=== PATIENT | male | born 1950 | race Caucasian/White ===

== ENCOUNTER 2016-07-11 16:08 | Observation (INO) | payer OTHER, MEDICARE ==
[~2016-07-11] VITALS: Ht 177.8 cm; Wt 123.4 kg
[2016-07-11] VITALS (8 sets, daily range): BP systolic 110–135; BP diastolic 62–89; PULSE 49–103; RESP 16–24; O2SAT 91–98
[~2016-07-11 16:08] MED LIST: AZEL23SP NS; FLUT16SP NS; LISI-567 PO; SILD100T PO; TR5C15 TOP; [UNRECOGNIZED DRUG - CODE] PO
--- NOTE | 2016-07-11 16:28 | ED.REPORT ---
HPI-General Illness Date of Service Jul 11, 2016 ED Provider: Catalino Mendoza MD Pt is a 65 y/o male w/ a hx of GERD, HTN, COPD with no home O2, presenting to the ED c/o sudden-onset epigastric abdominal pain with radiation the back onset 12:00 today. He describes his pain as a pressure and similar to gas. He c/o associated dyspepsia, near-syncope, diaphoresis, productive cough, SOB. Pt denies SOB, CP, fever, chills. His pain does not radiate to the chest or lower abdomen. Pain is not exacerbated with exertion. He had similar pain 2 years ago and was diagnosed with gastritis. He has no history of CAD or [place], aortic aneurysm or dissection, peptic ulcers. He denies recent history of surgeries or prolonged immobilization, hx of DVT or PE, any change in . He states his right leg intermittently becomes edematous but this has been happening for a long time. Nursing Notes Stated Complaint: UPPER ABD PRESSURE Chief Complaint: Male Abdominal Pain Nursing Notes Reviewed: Yes Allergies: Coded Allergies: No Known Allergies (Verified Allergy, Severe, 11/20/14) Scheduled Azelastine/Fluticasone (Dymista Nasal [place]) 23 Gm [place].pump 2 SPRAY NS DAILY Fluticasone Propionate (Fluticasone Propionate Nasal) 16 Gm [place].susp 2 SPRAY NS DAILY Lisinopril (Lisinopril) 20 Mg Tablet 20 MG PO DAILY Sildenafil Citrate (Viagra) 100 Mg Tablet 25-100 MG PO UD Scheduled PRN Ibuprofen (Ibuprofen Ib) 200 Mg Tablet 600 MG PO DAILY PRN PRN For Pain Triamcinolone Acet (Triamcinolone Acetonide Cream) 4 Applic/Gm Cr 1 APPLIC TOP BID PRN PRN psoriasis General Time Seen by MD: 16:26 Chief Complaint Abdominal pain Hx Obtained From: Patient, Spouse Arrived By: Walk-in Sudden in Onset?: Yes Onset Occurred: 1 - 4 hours ago Symptom Duration: Since onset Location: : Abdomen Quality: Painful Radiation: : Back Severity: Current: Moderate Severity: Maximum: Moderate Similar Sx Previous: Yes Past Medical History Past Medical History Sleep apnea GERD HTN COPD - no home O2 Past Surgical History Reports: Appendectomy, Tonsillectomy Family History Aneurysm Smoking History Former Smoker Social History Alcohol Use: "Social" Review of Systems Full Review of Systems Constitutional: Denies: Chills, Fever Respiratory: Reports: Prod cough, green, Prod cough, yellow, Shortness of breath Cardiovascular: Denies: Chest pain, Dyspnea on exertion GI: Reports: Abdominal pain, Denies: Diarrhea, Nausea, Vomiting Skin: Reports Diaphoresis, Denies Rash Neurologic: Reports: Dizziness, Lightheaded Complete sys rev & neg: except as marked. Physical Exam Vital Signs Vital Signs Date Time Temp Pulse Resp B/P Pulse Ox O2 Delivery O2 Flow Rate FiO2 07/11/16 19:09 91 22 134/78 93 Room Air 07/11/16 18:25 84 22 135/78 92 Nasal Cannula 2 07/11/16 17:32 52 18 97 Nasal Cannula 2 07/11/16 17:30 51 16 124/74 98 Nasal Cannula 4 07/11/16 16:27 49 22 116/72 91 Nasal Cannula 4 07/11/16 16:14 35.8 50 110/62 91 Room Air Initial VS: Reviewed, Vital signs abnormal Head / Eyes: Atraumatic, Normocephalic, PERRL Neck: Supple, Full range of motion Skin: Warm, Dry, No cyanosis Neurologic: Alert, Oriented, Nonfocal Psychiatric: Mood/affect normal, Behavior normal, Normal thought content General/Constitutional: Awake, Alert, Cooperative, Not toxic appearing Distress / Hydration: Positive: Distress mild Appearance / Presentation: Positive: Uncomfortable ENT: Atraumatic, Airway patent Mouth: Positive: Mucous membranes dry Respiratory / Chest: Atraumatic, No respiratory distress, No retractions, No stridor, No chest tenderness, No chest wall deformity, No crepitus Coarse breath sounds throughout Prolonged expiratory phase Scattered wheezing throughout Satting mid 90s on 4L nasal cannula Cardiovascular: Regular rhythm, Heart sounds NL, No gallop, No murmurs, No rubs , Cap refill not delayed, Peripheral circulation NL Heart Rate / Rhythm: Positive: Bradycardia (mild) Trace pitting edema Abdomen: Atraumatic, Soft, No guarding, No rebound, No distention, No palpable mass Tenderness/Guarding/Rebound: Positive: Tender epigastric (mod) Lower Extremity / Pelvis / MS: Atraumatic, Inspection NL, Full range of motion , Non-tender, No erythema, No deformity, Neurologic intact, Vascular intact, No compartment syndrome Right leg slightly more edematous than the left Interpretation & Diagnostics Lab Results Interpretation Result Diagram: 4/2/17 1632 07/11/16 1712 Test 07/11/16 16:32 07/11/16 17:12 White Blood Count 10.9th/mm3 (3.8-10.1) Red Blood Count 4.91mil/mm3 (4.40-5.80) Hemoglobin 15.1g/dL (13.8-17.2) Hematocrit 46.5% (41.0-50.0) Mean Corpuscular Volume 94.7fL (81-100) Mean Corpuscular Hemoglobin 30.8pg (27.0-35.0) Mean Corpuscular Hemoglobin Concent 32.5% (32.0-37.0) Red Cell Distribution Width 13.3% (12.3-15.4) Platelet Count 205bil/L (150-400) Neutrophils (%) (Auto) 64.5% (40-74) Lymphocytes (%) (Auto) 21.0% (14-46) Monocytes (%) (Auto) 8.6% (4-12) Eosinophils (%) (Auto) 5.2% (0-5) Basophils (%) (Auto) 0.3% (0-3) Sodium Level 140mEq/L (134-144) Potassium Level 4.4mEq/L (3.5-5.2) Chloride Level 101mEq/L (97-108) Carbon Dioxide Level 25mmol/L (18-29) Blood Urea Nitrogen 24mg/dL (8-27) Creatinine 1.01mg/dL (0.76-1.27) Estimat Glomerular Filtration Rate 78mL/min (>59) Glucose Level 136mg/dL (60-99) Calcium Level 9.8mg/dL (8.5-10.1) Magnesium Level 1.8mg/dL (1.6-2.6) Total Bilirubin 0.3mg/dL (0.0-1.2) Aspartate Amino Transf (AST/SGOT) 31U/L (0-50) Alanine Aminotransferase (ALT/SGPT) 31U/L (0-44) Alkaline Phosphatase 61U/L (25-160) Troponin T < 0.010ug/L (0.0-0.011) Total Protein 7.7g/dL (6.4-8.4) Albumin 4.0g/dL (3.4-5.0) Hold Mendez Top Tube Received (Received) ECG Interpretation ECG Interpretation: Sinus bradycardia rate [address] or T changes Compared to prior 03/17/14 now more bradycardic and 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 Dictated by: Lori Nunn M.D. on 07/11/2016 at 16:58 Approved by: Lori Nunn M.D. on 07/11/2016 at 17:01 View: Portable, 1 view Interpretation / Wet Read by: Interpret - Radiologist CT Chest Interpretation IMPRESSION: 1. No pulmonary embolus. 2. Moderate bilateral atypical pneumonia. 3. No change in pulmonary nodules. 4. Increased mediastinal and hilar adenopathy, possibly reactive. Followup chest CT in 3 months is recommended to exclude progressive neoplasm. Dictated by: Lori Nunn M.D. on 07/11/2016 at 18:28 Approved by: Lori Nunn M.D. on 07/11/2016 at 18:31 Study type: CT pulm angiogram Interpretation / Wet Read by: Interpret - Radiologist Re-Eval/Medical Decision Med Decision/Clinical Course Pt is a 65 y/o male w/ a hx of GERD, HTN, COPD with no home O2, presenting to the ED c/o sudden-onset epigastric abdominal pain with radiation the back onset 12:00 today, he reports a history of similar pain and thinks it is related to indigestion, of note he also reports significant dyspnea and wheezing on exertion. Upon arrival he has significant work of breathing with oxygen saturation into the mid 70s on room air, he also appears uncomfortable with epigastric discomfort. He is bradycardic in the 50s and EKG is obtained above demonstrates sinus bradycardia without significant changes from prior EKGs. He has no significant acute ischemic changes. His blood pressure is stable. He has tenderness without guarding or rigidity in the epigastrium and on examination there is no evidence of DVT. He has significant increased work of breathing with prolonged expiratory phase and poor air movement and wheezing. The patient appears to have multiple issues today. While his chest and epigastric pain in the setting of his multiple risk factors and comorbidities is concerning for acute coronary syndrome his description is much more suggestive of gastritis, GERD/peptic ulcer disease. Therefore I treated him with a GI cocktail and he reported near immediate resolution of his epigastric and chest pain. Initial screening EKG and troponin were reassuring against acute coronary syndrome. My larger concern is related to his significant hypoxia in the setting of chest pain that is somewhat pleuritic in nature. While my suspicion is that his underlying hypoxia and work of breathing is related to COPD exacerbation I have some concern for acute pulmonary embolism as well. I ordered a CT angiogram and treated him with 125 of IV methylprednisolone as well as to [id number] DuoNebs. He reported significant improvement in his work of breathing though he continued to require 4 L of oxygen by nasal cannula to maintain saturation in the mid 90s at rest. When ambulated without supplemental oxygen sat again dropped into the 70s and 80s. CXR: Obtained, reviewed and interpreted by myself shows no evidence of infiltrates, effusions or pneumothorax. Cardiac and mediastinal silhouette normal. No bony or soft tissue abnormalities. CT angiogram demonstrated no acute pulmonary embolism though there was bilateral ground glass appearance suggestive of atypical pneumonia. Therefore I treated the patient with 500 of oral azithromycin as he is not toxic in appearance or febrile. Labs notable as below: CBC: Borderline leukocytosis of 10.9, stable HCT CMP: Unremarkable Troponin: negative Patient was discussed with admitting hospitalist I feel that he warrants admission for further workup of his epigastric/chest pain and ACS rule out. Additionally he will hire ongoing treatment with his COPD exacerbation/atypical pneumonia. Antibiotics were discussed with admitting hospitalist and they will consider broadening his antibiotics though at this time they are comfortable proceeding with just oral azithromycin. Patient transferred in stable condition. Time of Eval: 19:21 Re-Evaluation/Progress Note: O2 sat 91% on RA at rest. Plan to road test. Time of Eval: 19:25 Re-Evaluation/Progress Note: Pt rechecked. Failed road test, desatting into 70s. Pain improved after GI cocktail. Informed pt of need for admission. Pt understands and agrees with plan for admission. All questions addressed. Consultation : Consulted With: Hospitalist Call Returned at: 19:34 Supervisor Area: Will see patient, Agrees with eval, Agrees with plan, Accepts admit Counseled Regarding: Diagnosis, Lab results, Need for admission Discharge & Departure Primary Impression: Atypical pneumonia Additional Impressions: Hypoxia COPD exacerbation GERD (gastroesophageal reflux disease) Esophagitis presence: esophagitis presence not specified Qualified Code: K21.9 - Gastro-esophageal reflux disease without esophagitis Gastritis Sinus bradycardia Disposition: ADMITTED TO HOSPITAL Discharge Condition All VS Reviewed: Yes Condition: Stable Referrals: Bright Carlos MD (PCP) Crit Care Except Billable Proc Time Spent: 135-164 minutes Services Performed: Patient management by me, Time spent at bedside, Reviewing test results, Reviewing imaging, Discussing patient care, Documentation in record, Time with fam/surrogate Scribe Attestation Portions of this note were transcribed by Arden Blair. I, Dr. Mendoza personally performed the history, physical exam and medical decision-making; I reviewed and confirmed the accuracy of the information in the transcribed note. Signed by Maribell Wing, 07/11/16 - [id number] copies to: Bright Carlos MD, Beck O MD Jul 11, 2016 16:28 ARDEN BLAIR Jul 11, 2016 16:51
[2016-07-11 16:47] LABS: BASOPHILS % (AUTO) 0.3 % (0-3); EOSINOPHILS % (AUTO) 5.2 % (0-5); MONOCYTES % (AUTO) 8.6 % (4-12); Mean Corpuscular Hemoglobin 30.8 pg (27.0-35.0); Mean Corpuscular Volume 94.7 fL (81-100); NEUTROPHILS % (AUTO) 64.5 % (40-74); Platelet Count 205 bil/L (150-400)
[2016-07-11] MEDS ORDERED: HYDROmorphone 0.5 mg/0.5 mL iSecure Syringe IVPUSH PRN (17:00)
[2016-07-11] MEDS ORDERED: MethylprednisoLONE Sodium Succinate 62.5 mg/mL 2 mL Inj IVPUSH ONE (17:00)
[2016-07-11] MEDS ORDERED: 0.9% Sodium Chloride 1,000 ML IV ONE (17:00)
[2016-07-11] MEDS ORDERED: Ondansetron 2 mg/mL 2 mL Inj IVPUSH ONE (17:00)
[2016-07-11] MEDS ORDERED: Albuterol-Ipratropium 3 mL Inhalation Solution NEB ONE (17:00)
[2016-07-11] MEDS ORDERED: Albuterol-Ipratropium 3 mL Inhalation Solution NEB SCH (17:00)
[2016-07-11] MEDS ORDERED: LidocaineVisc 2%:Antacid 1:1 10 mL Syringe PO ONE (17:00)
--- NOTE | 2016-07-11 17:02 | DRSVH ---
PROCEDURE: X-RAY CHEST ONE VIEW, PORTABLE ([id number]) INDICATIONS: epigastric pain TECHNIQUE: One view of the chest was acquired. COMPARISON: [facility], CR, XR CHEST 2VW, 06/07/2016, 15:36. FINDINGS: Surgical changes and devices: None. Lungs and pleura: No pleural effusions or pneumothorax. No change in moderate chronic interstitial p ulmonary opacity. Right hemidiaphragm is elevated, as before. Lungs are otherwise clear. Mediastinum: Mediastinal contours appear normal. Heart size is normal. Bones and chest wall: No suspicious bony lesions. Overlying soft tissues appear unremarkable. IMPRESSION: No acute process. Dictated by: Lori Nunn M.D. on 07/11/2016 at 16:58 Approved by: Lori Nunn M.D. on 07/11/2016 at 17:01
[2016-07-11 17:51] LABS: Magnesium 1.8 mg/dL (1.6-2.6); TROPONIN T < 0.010 ug/L (0.0-0.011)
--- NOTE | 2016-07-11 18:33 | DRSVH ---
PROCEDURE: CT ANGIO CHEST PULMONARY EMBOLISM ([id number]) INDICATIONS: sob, hypoxia, CP, ELW swelling TECHNIQUE: After the administration of intravenous contrast, 2 mm thick sections acquired from the pulmonary api isa to the posterior costophrenic angles. 3-dimensional maximum intensity projection (MIP) coronal a nd sagittal reformats were then acquired through the thorax. For radiation dose reduction, the follo wing was used: automated exposure control, adjustment of mA and/or kV according to patient size. COMPARISON: [facility], CT, CHEST WITH CONTRAST, 12/05/2014, 15:19. FINDINGS: Image quality: Excellent. Pulmonary arteries: Pulmonary arteries are normal in size, and demonstrate no intraluminal filling d efects to suggest central pulmonary embolism. Lungs and pleura: Lung volumes are low. There is moderate bilateral upper and lower lobe airspace [place]. Multiple bilateral pulmonary nodules are present, as before, largest of which is in the right a nterior lung base measuring 11 mm, which is not significantly changed. No pleural effusions or pneumo thorax. Central and peripheral airways are patent. Mediastinum: Heart size is normal, without pericardial effusion. Multiple sites of mediastinal and h ilar adenopathy are present, which have increased. 17 mm subcarinal adenopathy is increased. Thoracic aorta is normal in caliber and enhancement. Esophagus is normal in caliber, without hiatal hernia. Bones and chest wall: No suspicious bony lesions. Ribs and thoracic spine appear intact throughout. Thyroid gland is within normal limits. No axillary or supraclavicular adenopathy. Abdomen: Visualized upper abdominal solid organs appear normal in the early arterial phase of enhanc ement. IMPRESSION: 1. No pulmonary embolus. 2. Moderate bilateral atypical pneumonia. 3. No change in pulmonary nodules. 4. Increased mediastinal and hilar adenopathy, possibly reactive. Followup chest CT in 3 months is recommended to exclude progressive neoplasm. Dictated by: Lori Nunn M.D. on 07/11/2016 at 18:28 Approved by: Lori Nunn M.D. on 07/11/2016 at 18:31
[2016-07-11] MEDS ORDERED: Albuterol 2.5 mg/3 mL Inhalation Solution NEB PRN (19:40)
--- NOTE | 2016-07-11 19:53 | PCM.HPMED ---
Subjective Date of Service Jul 11, 2016 Primary Provider: Admitting Physician: Rohini Sawant DO Primary Care Physician: Bright Carlos MD Attending Physician: Rohini Sawant DO Admit Status: From the Emergency Department Chief Complaint: Dyspnea, shortness of breath, chest pain, epigastric pain, History of Present Illness: This is a pleasant 65 y/o M with hx of GERD, HTN, COPD but without use of home O2 prior history of COPD exacerbation, who presented to [facility] ED with sudden- onset constant 910 sharp epigastric abdominal pain with radiation the back that is exacerbated with exertion and lasted for several hours, onset noon today. Pain is described as pressure and similar to abdominal gas that he had experienced in the past. He had similar pain 2 years ago and was diagnosed at that time with gastritis. Assoiciated symptoms include dyspepsia, nausea, diaphoresis, cough productive green sputum 1 week, and SOB. His pain does not radiate to the chest or lower abdomen. He however denies CP, fever, chills, recent surgery, imobilization, hx of PE or DVT, abdominal pain other than epigastric, recent sick contacts, travel. He has no history of CAD or [place], aortic aneurysm or dissection, peptic ulcers. Of note his right leg does intermittently become edematous but this is not new. Patient was seen in the urgent care 3 times since March for productive cough cough, and received by mouth antibiotics. Last visit to urgent care was mid-May. Patient states his cough keeps recurring. In the ED patient was given DuoNeb therapy, 1 L normal saline bolus, IV Zofran, IV methylprednisolone at 125 mg once, Z-Teo, and GI cocktail for epigastric pain. Neuro test patient was de-satting the 70s, and was admitted to the hospital for acute exacerbation of COPD, hypoxia, and bilateral pneumonia. Patient denies any current epigastric pain since admission. Vital signs: In the ED Temperature 35.8, pulse 50, blood pressure 110/62, O2 sat 91% on room air. Repeat vitals: Pulse 91, respiratory rate 22, blood pressure 134/78, 93% on room air. In ED patient was placed on 4 L oxygen nasal cannula and then reduce to 2 L and is now on room air with oxygen saturation 93%. Patient was given 1 L of IV fluids. Hemogram shows: W BCs 10.9, percent neutrophils 64.5, eos 5.2, otherwise normal hemogram Chemistry panel: Glucose elevated at 136, troponin less than 0.010, creatinine 1.01, otherwise normal hemogram CXR showed: was read as no acute process. Compared to 05/2016 CT and she will showed: No pulmonary embolus. Moderate bilateral atypical pneumonia. No change in pulmonary nodules. Increased mediastinal hilar adenopathy, possibly reactive. Review of Systems: A comprehensive review of systems was conducted and was negative except as mentioned in history of present illness. Allergies Coded Allergies: No Known Allergies (Verified Allergy, Severe, 11/20/14) Home Medications Azelastine/Fluticasone (Dymista Nasal [place]) 23 Gm [place].pump 2 SPRAY NS DAILY Fluticasone Propionate (Fluticasone Propionate Nasal) 16 Gm [place]way.susp 2 SPRAY NS DAILY Lisinopril (Lisinopril) 20 Mg Tablet 20 MG PO DAILY Sildenafil Citrate (Viagra) 100 Mg Tablet 25-100 MG PO UD PRN Ibuprofen (Ibuprofen Ib) 200 Mg Tablet 600 MG PO DAILY PRN PRN For Pain Triamcinolone Acet (Triamcinolone Acetonide Cream) 4 Applic/Gm Cr 1 APPLIC TOP BID PRN PRN psoriasis Keri when necessary for hayfever PMH Sleep apnea GERD HTN COPD - no home O2 Psoriasis Surgical History Appendectomy, Tonsillectomy, lung biopsies Family History Aneurysm Social History Hx Alcohol Use: Yes (rarely) Hx Substance Use: No Hx Tobacco Use: No Smoking Status: Former Smoker Exam Vital Signs Vital Sign - Last Date Time Temp Pulse Resp B/P Pulse Ox O2 Delivery O2 Flow Rate FiO2 07/11/16 19:09 91 22 134/78 93 Room Air 07/11/16 18:25 2 07/11/16 16:14 35.8 Exam General: Oriented alert 3, resting in bed, no acute distress, speaking in full sentences. HEENT: NC/AT, eyes, pupils equally round, EOMI, neck, soft supple, no adenopathy , no JVD, no masses, no thyromegaly, throat mucous membranes pink and moist, no erythema, no exudates Lungs: Left lower lung field crackles, reduced respiratory sounds in the right lung base, no wheezes, poor air movement. Heart: Bradycardia, rhythm regular, no murmur, S1-S2 present, no rub, no click, Abdomen: Soft, nontender, but protuberant, bowel sounds active, no rebound, no guarding, no abdominal pain, no epigastric pain on exam Genitourinary: No CVA tenderness, no suprapubic tenderness Extremities: Muscle strength, 5 out of 5 upper/lower extremity and symmetric laterally,pulses equal and symmetric upper/lower extremity including radial and dorsalis pedis, no edema Neurologic: Grossly intact, PT is speaking in full sentences, no focal neurological signs Skin: Warm dry intact MSK: no erythema or edema of joints, full range of motion Lymphatic: no cervical or supraclavicular lymphadenopathy Psychiatric: Mood is pleasant Lab and Diagnostics Result Diagram: 07/11/16 1632 07/11/16 1712 X-Rays, CTs and MRIs Date of Service: 07/11/16 1619 PROCEDURE: X-RAY CHEST ONE VIEW, PORTABLE INDICATIONS: epigastric pain TECHNIQUE: One view of the chest was acquired. COMPARISON: [facility], CR, XR CHEST 2VW, 06/07/2016, 15:36. FINDINGS: Surgical changes and devices: None. Lungs and pleura: No pleural effusions or pneumothorax. No change in moderate chronic interstitial pulmonary opacity. Right hemidiaphragm is elevated, as before. Lungs are otherwise clear. Mediastinum: Mediastinal contours appear normal. Heart size is normal. Bones and chest wall: No suspicious bony lesions. Overlying soft tissues appear unremarkable. IMPRESSION: No acute process. Dictated by: Lori Nunn M.D. on 07/11/2016 at 16:58 Approved by: Lori Nunn M.D. on 07/11/2016 at 17:01 Date of Service: 07/11/16 1659 PROCEDURE: CT ANGIO CHEST PULMONARY EMBOLISM ([id number]) INDICATIONS: sob, hypoxia, CP, ELW swelling TECHNIQUE: After the administration of intravenous contrast, 2 mm thick sections acquired from the pulmonary apices to the posterior costophrenic angles. 3-dimensional maximum intensity projection (MIP) coronal and sagittal reformats were then acquired through the thorax. For radiation dose reduction, the following was used: automated exposure control, adjustment of mA and/or kV according to patient size. COMPARISON: [facility], CT, CHEST WITH CONTRAST, 12/05/2014, 15:19. FINDINGS: Image quality: Excellent. Pulmonary arteries: Pulmonary arteries are normal in size, and demonstrate no intraluminal filling defects to suggest central pulmonary embolism. Lungs and pleura: Lung volumes are low. There is moderate bilateral upper and lower lobe airspace opacity. Multiple bilateral pulmonary nodules are present, as before, largest of which is in the right anterior lung base measuring 11 mm, which is not significantly changed. No pleural effusions or pneumothorax. Central and peripheral airways are patent. Mediastinum: Heart size is normal, without pericardial effusion. Multiple sites of mediastinal and hilar adenopathy are present, which have increased. 17 mm subcarinal adenopathy is increased. Thoracic aorta is normal in caliber and enhancement. Esophagus is normal in caliber, without hiatal hernia. Bones and chest wall: No suspicious bony lesions. Ribs and thoracic spine appear intact throughout. Thyroid gland is within normal limits. No axillary or supraclavicular adenopathy. Abdomen: Visualized upper abdominal solid organs appear normal in the early arterial phase of enhancement. IMPRESSION: 1. No pulmonary embolus. 2. Moderate bilateral atypical pneumonia. 3. No change in pulmonary nodules. 4. Increased mediastinal and hilar adenopathy, possibly reactive. Followup chest CT in 3 months is recommended to exclude progressive neoplasm. Dictated by: Lori Nunn M.D. on 07/11/2016 at 18:28 Approved by: Lori Nunn M.D. on 07/11/2016 at 18:31 Assessment & Plan This is a pleasant 65 y/o M with hx of GERD, HTN, COPD but without use of home O2 prior history of COPD exacerbation, who presented to [facility] ED with sudden- onset constant 910 sharp epigastric abdominal pain with radiation the back that is exacerbated with exertion and lasted for several hours, onset noon today with new hypoxia. # Hypoxic repiratory failure, present on admission - Patient desats in the 70s while ambulating, requiring 2-4L nasal canula with sats in the low 90s, does not require home oxygen - Likely multifactorial, secondary to COPD, and community-acquired pneumonia # COPD exacerbation, present on admission, active - Desaturations into the 70s while ambulating. - Patient's baseline oxygen saturation at home is in the high 80s ,and is not on home oxygen. - Patient states that he felt improvement on DuoNeb therapy in the ED. - Patient denies any history of prior COPD exacerbation. - Patient currently on oxygen at 3.5 L. - Given Solu-medrol 125 mg x 1. - Start 40 mg prednisone daily x 5 days. - Starting antibiotics Levaquin as above - Continue duo nebs 4 times a day while awake and albuterol nebs every 2 hours for shortness of breath. # Acute bilateral pneumonia, likely CAP, present on admission, active Patient complaining of 1 week of cough, productive green sputum. States that he has recurring cough and sputum production since mid March 2016 with 3 urgent care visits resulting in antibiotic prescription. He states each time his cough clears, but then returns. - Patient received 1 dose of azithromycin by mouth 500 mg in the ED. - As seen on CT angiogram: No pulmonary embolus. Moderate bilateral atypical pneumonia. No change in pulmonary nodules. Increased mediastinal and hilar adenopathy, possibly reactive. - CXR showed no acute process, reviewed - Sputum ordered and pending - Procalcitonin ordered and pending - This is likely CAP and will start Empiric ABx IV Levoquin - Acetominophen for fever control PRN - Legionella, and strep pneumo urine antigen - Continuous cardiopulmonary monitoring # Acute onset epigastric pain, ACS rule out, present on admission, active - Patients main complaint was epigastric pain that resolved on GI cocktail. - Patient plana acute epigastric pain described as a sensation of gas with associated diaphoresis. Patient had a very similar event 2 years ago when he was diagnosed with gastritis. Patient denied chest pain. - Symptoms resolved rather quickly with GI cocktail in the emergency department. Patient currently in no epigastric pain resting comfortably in bed and asking for food. - Troponin 0.010 in ED, - We will repeat troponin - Continuous cardiac monitoring. # Sinus bradycardia, present on admission, active - Seen on EKG - Patient is in no acute distress, denies chest pain. - Vital signs are stable with most recent pulse 100, and bradycardia currently resolved - Patient to be placed on continuous cardiac monitoring while in house # Right bundle branch block - As seen on EKG - Continuous cardiac monitoring as above #Hyperglycemia, present on admission - Hemoglobin A1c ordered and pending - Continue to monitor Disposition: Admitted to in patient service with expected length of stay greater than 2 days, secondary to severity of presenting symptoms, treatment plan, complexity of clinical work up, and risk of adverse events. CODE STATUS: DNR/DNI PCP: Bright Carlos DVT/PE prophylaxis: heparin Q8H Contact: Elyse Attending Statement The patient was seen and examined together with house staff on 07/11/2016 and I have added additional information to the note above. James Lawson DO Jul 11, 2016 19:52 Rohini Sawant DO Jul 12, 2016 03:02
[2016-07-11] MEDS: Albuterol-Ipratropium 3 mL Inhalation Solution NEB SCH (20:30)
[2016-07-11] MEDS ORDERED: Alum-Mag Hydrox-Simeth 30 mL Suspension PO PRN (21:30)
[2016-07-11] MEDS ORDERED: Polyethylene Glycol (PEG) 17 Gm Powder PO PRN (21:30)
[2016-07-11 22:15] LABS: Magnesium 1.8 mg/dL (1.6-2.6)
[2016-07-12] VITALS (8 sets, daily range): BP systolic 95–125; BP diastolic 61–87; PULSE 100–114; RESP 18–22; O2SAT 89–97
[2016-07-12] MEDS: Heparin 5,000 Unit/mL Inj SUBQ SCH ×2 (00:16→08:45)
[2016-07-12] MEDS: Albuterol-Ipratropium 3 mL Inhalation Solution NEB SCH ×4 (00:30→12:30)
[2016-07-12 03:45] LABS: BASOPHILS % (AUTO) 0.1 % (0-3); EOSINOPHILS % (AUTO) 0 % (0-5); MONOCYTES % (AUTO) 1.7 % (4-12); Mean Corpuscular Hemoglobin 30.7 pg (27.0-35.0); Mean Corpuscular Volume 94.2 fL (81-100); NEUTROPHILS % (AUTO) 89.4 % (40-74); Platelet Count 222 bil/L (150-400)
[2016-07-12] MEDS ORDERED: levoFLOXacin Inj 750 MG in IV Premix 1 EACH IV SCH (08:30)
[2016-07-12] MEDS ORDERED: predniSONE 20 mg Tablet PO SCH (08:30)
[2016-07-12] MEDS ORDERED: NAPR220C11 PO ×2 (08:45→08:49)
--- NOTE | 2016-07-12 11:41 | PCM.DC.MED ---
Discharge Summary Date of Service Jul 12, 2016 Dates of Hospitalization Date of Hospital Admission Jul 11, 2016 at 19:40 Date of Discharge: Jul 12, 2016 Providers: Admitting Physician: Rohini Sawant DO Primary Care Physician: Bright Carlos MD Attending Physician: Rohini Sawant DO Diagnosis at Time of Discharge Diagnosis at Time of Discharge # Hypoxic respiratory failure # COPD exacerbation, present on admission # Acute onset epigastric pain, ACS rule out # Sinus bradycardia # Right bundle branch block #Hyperglycemia Procedures XRay, CTs & MRIs . X-RAY CHEST ONE VIEW, PORTABLE IMPRESSION: No acute process. Dictated by: Lori Nunn M.D. on 07/11/2016 at 16:58 CT ANGIO CHEST PULMONARY EMBOLISM IMPRESSION: 1. No pulmonary embolus. 2. Moderate bilateral atypical pneumonia. 3. No change in pulmonary nodules. 4. Increased mediastinal and hilar adenopathy, possibly reactive. Followup chest CT in 3 months is recommended to exclude progressive neoplasm. Dictated by: Lori Nunn M.D. on 07/11/2016 at 18:28 ECG 12 Lead ECG Interpretation: Sinus bradycardia rate [address] or T changes Compared to prior 03/17/14 now more bradycardic and his incomplete RBBB has progressed to a full RBBB Time: 16:54 Interpreted by: ED physician Normal ECG Interpretation: No acute ischemic changes Brief History Per H&P from Dr. Renny DUTTA 07/11/2016 "This is a pleasant 65 y/o M with hx of GERD, HTN, COPD but without use of home O2 prior history of COPD exacerbation, who presented to [facility] ED with sudden- onset constant 910 sharp epigastric abdominal pain with radiation the back that is exacerbated with exertion and lasted for several hours, onset noon today. Pain is described as pressure and similar to abdominal gas that he had experienced in the past. He had similar pain 2 years ago and was diagnosed at that time with gastritis. Assoiciated symptoms include dyspepsia, nausea, diaphoresis, cough productive green sputum 1 week, and SOB. His pain does not radiate to the chest or lower abdomen. He however denies CP, fever, chills, recent surgery, imobilization, hx of PE or DVT, abdominal pain other than epigastric, recent sick contacts, travel. He has no history of CAD or [place], aortic aneurysm or dissection, peptic ulcers. Of note his right leg does intermittently become edematous but this is not new. Patient was seen in the urgent care 3 times since March for productive cough cough, and received by mouth antibiotics. Last visit to urgent care was mid-May. Patient states his cough keeps recurring. In the ED patient was given DuoNeb therapy, 1 L normal saline bolus, IV Zofran, IV methylprednisolone at 125 mg once, Z-Teo, and GI cocktail for epigastric pain. Neuro test patient was de-satting the 70s, and was admitted to the hospital for acute exacerbation of COPD, hypoxia, and bilateral pneumonia. Patient denies any current epigastric pain since admission." Hospital Course Mr Ann is s pleasant 65 year old gentleman with past medical history of gastroesophageal reflux disease, hypertension, chronic obstructive pulmonary disease (without home O2) who was admitted to for epigastric pain and an ACS rule out. 1. Acute on Chronic Hypoxic reparatory failure, present on admission. Ongoing. Pt continued to desaturate as low as the 70's while ambulating. When placed on 2 -L O2 via nasal cannula his saturation levels would remain in the 90's. Per Pt this is his baseline. After review of outpatient records he is followed by pulmonology for lung mass. PFT's from 06/2014 showed an atypical restriction pattern. This is most likely secondary to a COPD exacerbation vs CAP. 2. COPD exacerbation, present on admission, improving. Pt will desaturate when ambulating initially in the 70's, by time of D/C he was sating in the low 90's on room air while at rest and he would desaturate to the mid 80's while walking with nurse. When he would stop to catch his breath his saturation levels would rise. While in hospital he found relief with Duo-nebs and IV steroids. He was given antibiotics though procalcitonin is within normal limits and white count is unremarkable. Patient has remained afebrile throughout stay. His oxygen needs have decreased during stay at time of discharge is saturating well on room air. 3. Possible acute bilateral pneumonia, likely CAP, present on admission, stable. Patient had complained of 1 week of productive cough prior to admission though he endorses this had been recurring over the past 4 months requiring 3 urgent care visits which resulted in antibiotic prescriptions. CT scan showed moderate bilateral atypical pneumonia and he was given azithromycin as well as levofloxacin though infectious picture seems unlikely. At time of discharge antibiotics were discontinued. 4. Acute onset epigastric pain, ACS rule out, present on admission, active. She is most likely not secondary to cardiac pathology as his symptoms resolved after administration of a GI cocktail. Troponin are negative 2, ECG showed slow sinus arrhythmia and a right bundle branch block, no ST or T-wave abnormalities. 5. Sinus bradycardia, present on admission, resolved. Throughout stay patient maintained in no acute distress with resolution of chest pain after GI cocktail. He does have a progression of his right bundle branch block as seen on ECG when compared to prior ECGs. Continue telemetry monitoring showed a consistent tachycardia in the 100s overnight. I recommend cardiology follow-up upon discharge. 6. Right bundle branch block - As seen on ECG, this has progressed from an incomplete to complete right bundle branch block when compared to prior ECG. - Continuous cardiac monitoring as above 7. Hyperglycemia, present on admission. Patient states he does not take any medications for diabetes nor does he carry this diagnosis. At time of discharge hemoglobin A1c pending. Recommend follow-up as an outpatient Patient discharged to home in stable condition with instructions to follow-up with primary care provider regarding progression of his COPD as well as cardiac conduction abnormalities. Exam Vital Signs (Last) Date Time Temp Pulse Resp B/P Pulse Ox O2 Delivery O2 Flow Rate FiO2 07/12/16 08:46 109 07/12/16 08:10 22 91 Nasal Cannula 4.50 07/12/16 07:40 36.8 107/64 Exam General: Obese male patient sitting in bedside chair awake and alert and appropriately interactive in no apparent distress. HEENT: Normocephalic, atraumatic. External ears without defect. Pupils equal, round, and reactive to light and accommodation. Anicteric sclerae, moist conjunctivae, and no lid lag. Oropharynx free of erythema and cobble stoning with moist mucosa. Neck: Supple with full range of motion. No jugular venous distension. Cardiovascular: Tachycardic rate with regular rhythm no murmurs appreciated Pulmonary: Clear to auscultation bilaterally upper and anterior lobes, slight crackles left lower lobe. Abdomen: Bowel tones present. Soft, nontender to palpation 4 quadrants, nondistended. No epigastric pain to palpation. Extremities: Mild lower extremity nonpitting edema bilaterally Skin: Normal temperature, turgor, and texture Neurological: Cranial nerves grossly intact. Psychiatric: Normal mood and affect. Alert and oriented to person, place, and time. Test 07/11/16 17:12 07/11/16 21:11 07/11/16 22:55 07/12/16 03:05 Magnesium Level 1.8mg/dL (1.6-2.6) Hold Mendez Top Tube Received (Received) Hold Urine Received (Received) Urine Legionella pneumophilia Ag Negative (Negative) Troponin T 0.010ug/L (0.0-0.011) White Blood Count 11.7th/mm3 (3.8-10.1) Red Blood Count 4.99mil/mm3 (4.40-5.80) Hemoglobin 15.3g/dL (13.8-17.2) Hematocrit 47.0% (41.0-50.0) Mean Corpuscular Volume 94.2fL (81-100) Mean Corpuscular Hemoglobin 30.7pg (27.0-35.0) Mean Corpuscular Hemoglobin Concent 32.6% (32.0-37.0) Red Cell Distribution Width 13.1% (12.3-15.4) Platelet Count 222bil/L (150-400) Neutrophils (%) (Auto) 89.4% (40-74) Lymphocytes (%) (Auto) 8.5% (14-46) Monocytes (%) (Auto) 1.7% (4-12) Eosinophils (%) (Auto) 0% (0-5) Basophils (%) (Auto) 0.1% (0-3) Sodium Level 136mEq/L (134-144) Potassium Level 4.9mEq/L (3.5-5.2) Chloride Level 99mEq/L (97-108) Carbon Dioxide Level 24mmol/L (18-29) Blood Urea Nitrogen 22mg/dL (8-27) Creatinine 0.98mg/dL (0.76-1.27) Estimat Glomerular Filtration Rate 81mL/min (>59) Glucose Level 162mg/dL (60-99) Calcium Level 9.4mg/dL (8.5-10.1) Total Bilirubin 0.3mg/dL (0.0-1.2) Aspartate Amino Transf (AST/SGOT) 29U/L (0-50) Alanine Aminotransferase (ALT/SGPT) 31U/L (0-44) Alkaline Phosphatase 60U/L (25-160) Total Protein 7.6g/dL (6.4-8.4) Albumin 3.9g/dL (3.4-5.0) Procalcitonin 0.08ng/mL (0.00-0.08) Microbiology Results Sputum culture pending Streptococcus pneumonia antigen screen negative Discharge Medications Discharge Medications Lisinopril (Lisinopril) 20 Mg Tablet 20 MG PO DAILY (Reported) Naproxen Sodium (Aleve) 220 Mg Capsule 440 MG PO DAILY (Reported) Sildenafil Citrate (Viagra) 100 Mg Tablet 25-100 MG PO UD (Reported) As needed Azelastine/Fluticasone (Dymista Nasal [place]) 23 Gm [place]ws.pump 2 SPRAY NS DAILY PRN PRN . (Reported) Fluticasone Propionate (Fluticasone Propionate Nasal) 16 Gm [place].susp 2 SPRAY NS DAILY PRN PRN . (Reported) Naproxen Sodium (Aleve) 220 Mg Capsule 440 MG PO DAILY PRN PRN For Pain ( Reported) Triamcinolone Acet (Triamcinolone Acetonide Cream) 4 Applic/Gm Cr 1 APPLIC TOP BID PRN PRN psoriasis (Reported) Followup Plan Disposition: Discharged home in stable condition Discharge Diet: Heart Healthy Discharge Activity: Limited until seen by PCP Patient Instructions Please follow up with your primary care provider within 1-2 weeks regarding the probable progression of your chronic obstructive pulmonary disease as well as the need for outpatient medications to better help control your exacerbations. You will also need to be referred to a banking supervisor regarding the progression of some cardiac conduction abnormalities noted on your EKG. you also need another echocardiogram of her heart in the near future. The last time this study was done was in 2011 and it showed the beginnings of congestive heart failure. I am giving you a referral to cardiology. Follow-up Provider: Bright Carlos MD Follow-up with PCP in: 1 week Provider: GAYLE RASCON [facility] Follow-up in: 2 weeks Time spent Greater than 30 minutes was spent in preparation of discharge with greater than 50% of that time dedicated to patient counseling and coordination of care. . Attending Statement The patient was seen and examined together with Dr. Larios on 07/12/2016 and I agree with the history, exam and plan as outlined in the note above. . copies to: Bright Carlos MD, GILES A DO Jul 12, 2016 11:41 Henri Samuels MD Jul 13, 2016 07:45
[2016-07-12] MEDS ORDERED: Fluticasone 0.05% 15 Spray/2 Gm 16 Gm Nasal Spray NOSTRIL PRN (14:00)
--- NOTE | 2016-07-12 14:16 | PCM.DIMED ---
SIOBHAN LARIOS DO 07/12/16 1416: Discharge Instructions Date of Service Jul 12, 2016 Dates of Hospitalization Jul 11, 2016 at 19:40 Discharge Diagnosis Discharge Diagnosis # Hypoxic respiratory failure # COPD exacerbation, present on admission # Acute onset epigastric pain, ACS rule out # Sinus bradycardia # Right bundle branch block #Hyperglycemia Medication Instructions I am continuing your home medications. These include your two nasal sprays Dymista and Fluticasone. And your psoriasis cream. You may continue to take your Aleve as necessary as well as your Viagra as necessary. I am also continuing your lisinopril, though your blood pressure has been somewhat low at times during your brief hospital stay. I recommend you follow up with your primary care physician regarding this medication and its possible dosage adjustment. Diet Heart Healthy Activity Limited until seen by PCP Call your provider Fever or Chills, Shortness of breath, Bleeding, Chest pain, Vomitting, Excessive diarrhea, Weakness (unilateral) Patient Instructions Please follow up with your primary care provider within 1-2 weeks regarding the probable progression of your chronic obstructive pulmonary disease as well as the need for outpatient medications to better help control your exacerbations. You will also need to be referred to a restoration silversmith regarding the progression of some cardiac conduction abnormalities noted on your EKG. you also need another echocardiogram of her heart in the near future. The last time this study was done was in 2011 and it showed the beginnings of congestive heart failure. I am giving you a referral to cardiology. Follow-up Provider: Bright Carlos MD Follow-up with PCP in: 1 week [facility]up [facility]: 2 weeks Henri Samuels MD 07/13/16 0745: Discharge Instructions Attending's Statement The patient was seen and examined together with Dr. Larios on 07/12/2016 and I agree with the history, exam and plan as outlined in the note above. . SIOBHAN LARIOS DO Jul 12, 2016 14:16 Henri Samuels MD Jul 13, 2016 07:45
== END 2016-07-12 15:30 | disposition home or self-care (01) ==
LOC: SED 16:08 → PCC 19:40
PROVIDERS: ADMIT Internal Medicine; ATTEND Internal Medicine
DX: J96.21 Acute and chronic respiratory failure with hypoxia (principal); J44.1 Chronic obstructive pulmonary disease with (acute) exacerbation; R10.13 Epigastric pain; I10 Essential (primary) hypertension; R00.1 Bradycardia, unspecified; G47.30 Sleep apnea, unspecified; K21.9 Gastro-esophageal reflux disease without esophagitis; L40.9 Psoriasis, unspecified; I45.10 Unspecified right bundle-branch block; R73.9 Hyperglycemia, unspecified; Z66 Do not resuscitate; Z87.891 Personal history of nicotine dependence
CPT/HCPCS: 36415; 71010; 71275; 80053; 83036; 83735; 84145; 84484; 85025; 86403; 87070; 87185; 87205; 87449; 93005; 94640; 94664; 96361; 96365; 96375; 99291; 99292; G0378; J1170; J1644; J1956; J2405; J2930; J7030; J7620; Q9967